=== PATIENT | male | born 1945 | race Caucasian/White ===

== ENCOUNTER 2016-12-21 12:58 | Outpatient (CLI) | payer MEDICARE, MEDICAID ==
[2016-12-21] MEDS ORDERED: ALBUTEROL SULF8.5 GM INH (13:24)
[2016-12-21] MEDS ORDERED: TEMAZEPAM22.5 MG PO (13:24)
[2016-12-21] MEDS ORDERED: AZELASTINE205.5 MCG/ NS (13:24)
[2016-12-21] MEDS ORDERED: ALLOPURINOL300 M1 ORAL (13:24)
[2016-12-21] MEDS ORDERED: QVAR7.3 G2 IH (13:25)
[2016-12-21] MEDS ORDERED: AVODART0.5 MG ORAL (13:25)
[2016-12-21] MEDS ORDERED: TAMSULOSIN HCL0.4 MG ORAL (13:25)
[2016-12-21] MEDS ORDERED: TRAZODONE HCL150 MG ORAL (13:25)
[2016-12-21] MEDS ORDERED: NASACORT10.8 ML NS (13:25)
[2016-12-21] MEDS ORDERED: LIPITOR20 MG ORAL (13:25)
[2016-12-21] MEDS ORDERED: BACLOFEN10 MG ORAL (13:25)
[2016-12-21] MEDS ORDERED: KLONOPIN0.5 MG ORAL (13:25)
[2016-12-21] MEDS ORDERED: SEROQUEL50 MG ORAL (13:25)
[2016-12-21] MEDS ORDERED: NORVASC5 MG ORAL (13:25)
[2016-12-21] MEDS ORDERED: NAPROXEN250 M1 PO (13:25)
[2016-12-21] MEDS ORDERED: LEXAPRO10 MG ORAL (13:25)
[2016-12-21] MEDS ORDERED: GABAPENTIN600 MG ORAL (13:25)
--- NOTE | 2016-12-21 13:33 | GI Initial Consult Note ---
JackieDeirdre Preet N.PSandhya 12/21/16 1333: History of Present Illness General Date patient seen: December 21, 2016 Time patient seen: 13:25 Referring physician: ARABELLA Reason for Consultation: COLONOSCOPY SCREENING Present Illness HPI 71 year old male patient referred by Dr. Teague presents today for routine colonoscopy. Last colonoscopy approximately 5 years ago with polypectomy x 2. In addition the patient has occasional complaints of acid flux/GERD. He states he is not taking any medication at this time for his symptoms. No other GI complaints at this time. Denies any weight loss. Home Meds Reported Medications Amlodipine Besylate (Norvasc) 5 Mg Tablet, 5 MG ORAL DAILY, TAB 12/21/16 Tamsulosin Hcl (TAMSULOSIN HCL*) 0.4 Mg Cap.er.24h, 0.4 MG ORAL BEDTIME, CAP 12/21/16 Trazodone* (TRAZODONE*) 150 Mg Tablet, 300 MG ORAL BEDTIME, TAB 12/21/16 Quetiapine Fumarate (SEROQUEL) 50 Mg Tablet, 100 MG ORAL DAILY, #15 TAB 0 Refills 12/21/16 Beclomethasone Dipropionate (Qvar) Unknown Strength Aer.w.adap, IH, GM 12/21/16 Triamcinolone Acetonide (Nasacort) Unknown Strength [place]ane, NS, SPRAY 12/21/16 Naproxen (Naproxen) 250 Mg Tablet, 500 MG PO, TAB 12/21/16 Amlodipine Besylate (Norvasc) 5 Mg Tablet, 5 MG ORAL DAILY, TAB 12/21/16 Atorvastatin Calcium* (LIPITOR*) 20 Mg Tablet, 30 MG ORAL BEDTIME, TAB 12/21/16 Escitalopram Oxalate* (LEXAPRO*) 10 Mg Tablet, 10 MG ORAL DAILY, TAB 12/21/16 Clonazepam* (KLONOPIN*) 0.5 Mg Tablet, 0.5 MG ORAL Q6H, #15 TAB 0 Refills 12/21/16 Gabapentin* (GABAPENTIN*) 600 Mg Tablet, 600 MG ORAL THREE TIMES A DAY, TAB 12/21/16 Baclofen* (BACLOFEN*) 10 Mg Tablet, 20 MG ORAL THREE TIMES A DAY, TAB 12/21/16 Dutasteride (AVODART) 0.5 Mg Capsule, 0.5 MG ORAL DAILY, CAP 12/21/16 Azelastine HCl (Azelastine HCl) Unknown Strength [place]ane.pump, NS 12/21/16 Temazepam (TEMAZEPAM) Unknown Strength Capsule, PO, CAP 12/21/16 Allopurinol* (ALLOPURINOL*) 300 Mg Tablet, 300 MG ORAL DAILY, TAB 12/21/16 Albuterol Sulfate* (ALBUTEROL SULFATE MDI*) 8.5 Gm Hfa.aer.ad, 2 PUFF INH Q6H, # 1 INH 0 Refills 12/21/16 Med list reviewed/reconciled: Yes Allergies: Coded Allergies: No Known Allergies (Verified Allergy, Unknown, 06/30/09) Patient History History Provided By: Patient, Medical Record PMH Narrative Acid Reflux DM Depression HTN Heart Disease IBS-D Cholesterol Elevation PSHx L TKA Family History Narrative Mother with cancer unknown etiology. Social History: Reports: alcohol use - daily red wine at night, other - coffee x 2 daily, smoking - 20+ years, has quit for 11 years. Review of Systems All Other Systems: negative except mentioned in HPI Physical Exam T 97.5 BP 134/81 P 80 96 RA HT 5'11 WT 192.1 lbs Sp02 EP Interpretation: reviewed General Appearance: well appearing, no apparent distress, alert Head: normocephalic EENT: normal ENT inspection Neck: supple Respiratory: normal breath sounds, no respiratory distress Cardiovascular: normal rate Gastrointestinal: normal inspection, non tender, soft, normal bowel sounds Rectal: deferred Genitourinary: no CVA tenderness Musculoskeletal: normal inspection, back normal Neurologic: normal inspection, alert, oriented x3, responsive Psychiatric: normal inspection, judgement/insight normal, memory normal Skin: no rash, warm/dry Lymphatic: normal inspection, no adenopathy GI: Plan Problems: (1) Colonoscopy planned (2) GERD (gastroesophageal reflux disease) (3) Diabetes mellitus (4) HTN (hypertension) (5) IBS (irritable bowel syndrome) (6) Heart disease Plan EGD/colonoscopy scheduled 01/02/17. - [facility] [employer] prep instructions given and acknowledged. request medication list from Dr. Teague consider H2B prn for episodes of GERD Seen with Dr. Shin. Thank you for referring this patient. MAXIMO SHIN 12/25/16 1057: History of Present Illness Present Illness Home Meds Reported Medications Amlodipine Besylate (Norvasc) 5 Mg Tablet, 5 MG ORAL DAILY, TAB 12/21/16 Tamsulosin Hcl (TAMSULOSIN HCL*) 0.4 Mg Cap.er.24h, 0.4 MG ORAL BEDTIME, CAP 12/21/16 Trazodone* (TRAZODONE*) 150 Mg Tablet, 300 MG ORAL BEDTIME, TAB 12/21/16 Quetiapine Fumarate (SEROQUEL) 50 Mg Tablet, 100 MG ORAL DAILY, #15 TAB 0 Refills 12/21/16 Beclomethasone Dipropionate (Qvar) Unknown Strength Aer.w.adap, IH, GM 12/21/16 Triamcinolone Acetonide (Nasacort) Unknown Strength [place], NS, SPRAY 12/21/16 Naproxen (Naproxen) 250 Mg Tablet, 500 MG PO, TAB 12/21/16 Amlodipine Besylate (Norvasc) 5 Mg Tablet, 5 MG ORAL DAILY, TAB 12/21/16 Atorvastatin Calcium* (LIPITOR*) 20 Mg Tablet, 30 MG ORAL BEDTIME, TAB 12/21/16 Escitalopram Oxalate* (LEXAPRO*) 10 Mg Tablet, 10 MG ORAL DAILY, TAB 12/21/16 Clonazepam* (KLONOPIN*) 0.5 Mg Tablet, 0.5 MG ORAL Q6H, #15 TAB 0 Refills 12/21/16 Gabapentin* (GABAPENTIN*) 600 Mg Tablet, 600 MG ORAL THREE TIMES A DAY, TAB 12/21/16 Baclofen* (BACLOFEN*) 10 Mg Tablet, 20 MG ORAL THREE TIMES A DAY, TAB 12/21/16 Dutasteride (AVODART) 0.5 Mg Capsule, 0.5 MG ORAL DAILY, CAP 12/21/16 Azelastine HCl (Azelastine HCl) Unknown Strength [place]ane.pump, NS 12/21/16 Temazepam (TEMAZEPAM) Unknown Strength Capsule, PO, CAP 12/21/16 Allopurinol* (ALLOPURINOL*) 300 Mg Tablet, 300 MG ORAL DAILY, TAB 12/21/16 Albuterol Sulfate* (ALBUTEROL SULFATE MDI*) 8.5 Gm Hfa.aer.ad, 2 PUFF INH Q6H, # 1 INH 0 Refills 12/21/16 Allergies: Coded Allergies: No Known Allergies (Verified Allergy, Unknown, 06/30/09) GI: Plan Plan The patient was seen and examined at bedside and all new and available data was reviewed in the patients chart. I agree with the above findings, impression and plan. (Patient seen earlier today. Signature stamp does not reflect patient encounter time.). -Maximo [facility] Preet Lafleur December 21, 2016 13:33 MAXIMO SHIN Dec 25, 2016 10:57
== END 2016-12-21 13:30 | disposition home or self-care (01) ==
LOC: PAN 12:58
DX: K21.9 Gastro-esophageal reflux disease without esophagitis (principal); E11.9 Type 2 diabetes mellitus without complications; I10 Essential (primary) hypertension; K58.9 Irritable bowel syndrome, unspecified; I51.9 Heart disease, unspecified; Z87.891 Personal history of nicotine dependence; Z80.9 Family history of malignant neoplasm, unspecified; Z96.652 Presence of left artificial knee joint
CPT/HCPCS: 99201

== ENCOUNTER 2017-01-02 08:49 | Day surgery (SDC) | payer MEDICARE, MEDICAID ==
[~2017-01-02] VITALS: Ht 180.3 cm; Wt 83.5 kg
[2017-01-02] VITALS (7 sets, daily range): BP systolic 130–158; BP diastolic 78–96
[~2017-01-02 08:49] MED LIST: ALBUTEROL SULF8.5 GM INH; ALLOPURINOL300 M1 ORAL; AVODART0.5 MG ORAL; AZELASTINE205.5 MCG/ NS; BACLOFEN10 MG ORAL; GABAPENTIN600 MG ORAL; KLONOPIN0.5 MG ORAL; LEXAPRO10 MG ORAL; LIPITOR20 MG ORAL; NAPROXEN250 M1 PO; NASACORT10.8 ML NS; NORVASC5 MG ORAL; QVAR7.3 G2 IH; SEROQUEL50 MG ORAL; TAMSULOSIN HCL0.4 MG ORAL; TEMAZEPAM22.5 MG PO; TRAZODONE HCL150 MG ORAL
--- NOTE | 2017-01-02 09:18 | Anethesia Preoperative Eval ---
Anesthesia Pre-op PMH/ROS General Date of Evaluation: Jan 02, 2017 Anesthesiologist: Hoang ASA Score: ASA 2 Mallampati Score Class I : Soft palate, uvula, fauces, pillars visible Class II: Soft palate, uvula, fauces visible Class III: Soft palate, base of uvula visible Class IV: Only hard plate visible Mallampati Classification: Class II Surgeon: Kayce Diagnosis: Screening Surgical Procedure: EGd and colonoscopy Anesthesia History: none Family History: no anesthesia problems Allergies: Coded Allergies: No Known Allergies (Verified Allergy, Unknown, 06/30/09) Medications: see eMAR Past Medical History Cardiovascular: Reports: CAD, HTN, Denies: OH, arrhythmia, other, valve dz Pulmonary: Denies: COPD, GABRIELA, asthma, other Gastrointestinal/Genitourinary: Reports: GERD, other - IBS, Denies: CRI, ESRD Neurologic/Psychiatric: Denies: CVA, TIA, dementia, depression/anxiety, other Endocrine: Reports: DM, Denies: hypothyroidism, other, steroids HEENT: Denies: TELLER (L), TELLER (R), cataract (L), cataract (R), glaucoma, other Hematology/Immune: Denies: DVT, anemia, bleeding disorder, other Musculoskeletal/Integumentary: Denies: DDD, DJD, OA, RA, edema, other Anesthesia Pre-op Phys. Exam Physician Exam see chart Constitutional: NAD Cardiovascular: RRR Respiratory: CTA Airway Exam Mallampati Score: Class II MO: full ROM: full Anesthesia Pre-op A/P Labs see chart Risk Assessment & Plan Assessment: ASA II Plan: MAC Status Change Before Surgery: No Pre-Antibiotics Drug: N/A LEE MARIE M.D. Jan 02, 2017 09:18
--- NOTE | 2017-01-02 10:21 | Pre-Procedure Note/Attestation ---
Pre-Procedure Note/Attestation Complete Prior to Procedure Planned Procedure: not applicable Procedure Narrative: egd/colon Indications for Procedure Pre-Operative Diagnosis: screening colon, GERD Attestation I attest that I discussed the nature of the procedure; its benefits; risks and complications; and alternatives (and the risks and benefits of such alternatives ), prior to the procedure, with the patient (or the patient's legal sales utility representative). I attest that, if there was a reasonable possibility of needing a blood transfusion, the patient (or the patient's legal sales utility representative) was given the [facility] standardized written summary, pursuant to the [place] Blood Safety Act ([place] Health and Safety Code # 1645, as amended). I attest that I re-evaluated the patient just prior to the surgery and that there has been no change in the patient's H&P, except as documented below: BARI SHIN Jan 02, 2017 10:21
--- NOTE | 2017-01-02 10:22 | Short Stay Surgery H&P ---
History of Present Illness History of Present Illness Chief Complaint screening colon, GERD HPI Dav Penny is a 71 year old male who was admitted on for Gerd,Colon Screening Patient History Allergies: Coded Allergies: No Known Allergies (Verified Allergy, Unknown, 06/30/09) PAST MEDICAL HISTORY: (1) Diabetes mellitus (2) Heart disease (3) GERD (gastroesophageal reflux disease) (4) HTN (hypertension) (5) IBS (irritable bowel syndrome) Past Surgeries: Social History: Medication History Scheduled Albuterol Sulfate* (Albuterol Sulfate Mdi*), 2 PUFF INH Q6H, (Reported) Allopurinol* (Allopurinol*), 300 MG ORAL DAILY, (Reported) Amlodipine Besylate (Norvasc), 5 MG ORAL DAILY, (Reported) Atorvastatin Calcium* (Lipitor*), 30 MG ORAL BEDTIME, (Reported) Baclofen* (Baclofen*), 20 MG ORAL THREE TIMES A DAY, (Reported) Clonazepam* (Klonopin*), 0.5 MG ORAL Q6H, (Reported) Dutasteride (Avodart), 0.5 MG ORAL DAILY, (Reported) Escitalopram Oxalate* (Lexapro*), 10 MG ORAL DAILY, (Reported) Quetiapine Fumarate (Seroquel), 100 MG ORAL DAILY, (Reported) Tamsulosin Hcl (Tamsulosin Hcl*), 0.4 MG ORAL BEDTIME, (Reported) Trazodone* (Trazodone*), 300 MG ORAL BEDTIME, (Reported) Miscellaneous Medications Azelastine HCl (Azelastine HCl), Unknown Dose NS, (Reported) Beclomethasone Dipropionate (Qvar), Unknown Dose IH, (Reported) Temazepam (Temazepam), Unknown Dose PO, (Reported) Triamcinolone Acetonide (Nasacort), Unknown Dose NS, (Reported) Review of Systems Cardiovascular: Reports: no symptoms Respiratory: Reports: no symptoms Skeletal: Reports: no symptoms Gastrointestinal: Reports: no symptoms Genitourinary: Reports: no symptoms Neurologic: Reports: no symptoms Endocrine: Reports: no symptoms Hematologic: Reports: no symptoms Physical Exam Vital Signs Last Vital Signs Date Time Temp Pulse Resp B/P Pulse Ox O2 Delivery O2 Flow Rate FiO2 01/02/17 09:16 97.0 87 18 153/85 98 Room Air Skin: normal HENT: normal Heart: normal Lungs: normal Abdomen: normal Extremities: normal Plan Plan of Care egd/colon Final Diagnosis: Attestation Are the patient's medical conditions optimized for surgery? Attestation Response: yes BARI SHIN Jan 02, 2017 10:22
[2017-01-02] MEDS ORDERED: Lidocaine 1% MPF 10mg/ml 5ml ONE (10:30)
[2017-01-02] MEDS ORDERED: LR 1000ml ONE (10:30)
[2017-01-02] MEDS ORDERED: Propofol 10mg/ml 20ml IV ONE (10:30)
[2017-01-02] MEDS ORDERED: LR 1000ml 1,000 ML IVLG SCH (10:51)
--- NOTE | 2017-01-02 10:57 | Endoscopy Procedure Note ---
Endoscopy Procedure Note Indication for Procedure: screening colon, GERD Procedures Performed: EGD, colonoscopy Operative Findings/Diagnosis: gastritis, esophagitis,diverticulosis Specimen: yes Pt Tolerated Procedure Well: Yes Estimated Blood Loss: none Anesthesiologist: navneet Anesthesia: MAC Implant(s) used?: No 50 yrs or older w/o bx or poly: Yes 10yrs. F/U not recommended: Yes If not recommended, why?: Above average risk 10 yrs. F/U needed: Yes 18 years or older w/prev. colo: Yes <3yrs. since last colonoscopy: No BARI SHIN Jan 02, 2017 10:57
[2017-01-02] MEDS ORDERED: DiphenhydrAMINE 50mg/ml Inj IVP PRN (11:00)
--- NOTE | 2017-01-02 11:08 | Immediate Post-Op Evaluation ---
Immediate Post-Op Evalulation Immediate Post-Op Evalulation Procedure: EGD and colonoscopy Date of Evaluation: Jan 02, 2017 Time of Evaluation: 11:08 IV Fluids: 300 Blood Products: 0 Estimated Blood Loss: 0 Urinary Output: 0 Blood Pressure Systolic: 143 Blood Pressure Diastolic: 94 Pulse Rate: 84 Respiratory Rate: 16 O2 Sat by Pulse Oximetry: 98 Temperature (Fahrenheit): 97.2 Pain Score (1-10): 0 Nausea: No Vomiting: No Complications 0 Patient Status: awake, reacts, patent, none Hydration Status: adequate Drug: N/A LEE MARIE M.D. Jan 02, 2017 11:08
--- NOTE | 2017-01-02 17:45 | Procedure Note ---
DATE OF PROCEDURE: 01/02/2017 SURGEON: Maximo Devries M.D. PROCEDURE: Upper endoscopy with biopsy and colonoscopy. ANESTHESIOLOGIST: Dr. Bolton. INSTRUMENT: Olympus adult flexible upper endoscope and colonoscope. INDICATION: 1. Screening colonoscopy evaluation. 2. Weight loss. REASON FOR PROCEDURE: The procedure, risks, benefits, and possible consequences, including hemorrhage, aspiration, perforation and infection, and alternative treatments, were explained to the patient/legal guardian by Dr. Maximo Devries and the patient/legal guardian understood and accepted these risks. DESCRIPTION OF PROCEDURE: After informed consent was obtained and the patient was adequately sedated, the Olympus upper endoscope was advanced from the mouth into the second portion of the duodenum and retroflexion was performed in the stomach. The patient had diffuse gastritis. Random biopsy from antrum was obtained to rule out H. pylori infection. The patient had minimum distal esophagitis right at the GE junction with some inflammatory changes. No active bleeding at this time. The scope was gradually removed and upper endoscopy was terminated and then the patient was turned over for colonoscopy. First, a rectal exam was performed, which showed positive for internal hemorrhoids. Then, the scope was advanced from the rectum into the area, which seemed to be cecum, unfortunately there was solid stool seen in the cecum, so examination of cecum was limited. The rest of the colonic examination grossly within normal limits. The patient had moderate diverticulosis in the left colon. No obvious mass or polyp was seen. Retroflexion of rectum showed some internal hemorrhoids. SUMMARY OF FINDINGS: 1. Gastritis, status post biopsy. 2. Minimal esophagitis. 3. Diverticulosis. 4. Poor prep in the cecum. 5. Internal hemorrhoids. RECOMMENDATIONS: 1. Follow up biopsies and treat accordingly. 2. Repeat colonoscopy in 10 years. Maximo Devries M.D. DR: Kassidy JOB#: [id number] CC:
[2017-01-03 09:29] VITALS: BP 158/96
--- NOTE | 2017-01-03 09:29 | 48 Hour Post Anesthesia Eval ---
Post Anesthesia Evaluation Procedure: EGD and colonoscopy Date of Evaluation: Jan 02, 2017 Time of Evaluation: 13:00 Blood Pressure Systolic: 158 0: 96 Pulse Rate: 86 Respiratory Rate: 18 Temperature (Fahrenheit): 97.8 O2 Sat by Pulse Oximetry: 97 Airway: patent Nausea: No Vomiting: No Pain Intensity: 0 Hydration Status: adequate Cardiopulmonary Status: at baseline Mental Status/LOC: patient returned to baseline Post-Anesthesia Complications: 0 Follow-up care needed: ready to discharge LEE MARIE M.D. Jan 03, 2017 09:29
--- NOTE | 2017-01-03 18:14 | Cardiology Report ---
APPROVED REPORT EKG Measurement Heart [id number] Normal sinus rhythm Right bundle branch block Abnormal ECG
== END 2017-01-02 13:00 | disposition home or self-care (01) ==
LOC: GAS 08:49
DX: Z12.11 Encounter for screening for malignant neoplasm of colon (principal); K64.8 Other hemorrhoids; K57.30 Diverticulosis of large intestine without perforation or abscess without bleeding; R63.4 Abnormal weight loss; K29.50 Unspecified chronic gastritis without bleeding; K20.9 Esophagitis, unspecified; K21.9 Gastro-esophageal reflux disease without esophagitis; E11.9 Type 2 diabetes mellitus without complications; I25.10 Atherosclerotic heart disease of native coronary artery without angina pectoris; I10 Essential (primary) hypertension; K58.9 Irritable bowel syndrome, unspecified
CPT/HCPCS: 43239; 82962; 93005; G0121; J2704; J7120; 94003; 94150